=== PATIENT | male | born 1980 | race Caucasian/White ===

== ENCOUNTER 2019-01-19 16:49 | Emergency (ER) | payer OTHER ==
[~2019-01-19] VITALS: Ht 182.9 cm; Wt 100.0 kg
[2019-01-19 17:24] VITALS: BP 136/75
--- NOTE | 2019-01-19 18:29 | NUR ---
PT. HAS ELOPED. DR. CERVANTES WAS NOTIFIED.
[2019-01-20] MEDS ORDERED: ERYT1OIN6 EACHEYE (02:49)
== END 2019-01-19 18:34 | disposition left against medical advice (07) ==
LOC: ER 16:50
DX: H53.8 Other visual disturbances (principal); R51 Headache; Z53.21 Procedure and treatment not carried out due to patient leaving prior to being seen by health care provider

== ENCOUNTER 2019-01-20 01:34 | Emergency (ER) | payer OTHER ==
[~2019-01-20] VITALS: Ht 182.9 cm; Wt 96.3 kg
[2019-01-20 01:55] VITALS: BP 122/84
[2019-01-20] MEDS ORDERED: ibuprofen tablet 400 MG TABLET PO ONE (02:10)
[2019-01-20] MEDS ORDERED: proparacaine 0.5% ophthalmic drops 15ml EACHEYE ONE (02:10)
[2019-01-20] MEDS ORDERED: acetaminophen 325mg tablet PO ONE (02:10)
[2019-01-20] MEDS ORDERED: erythromycin ophthalmic ointment 1gm tube EACHEYE ONE (02:40)
[2019-01-20] MEDS ORDERED: ERYT1OIN6 EACHEYE (02:49)
== END 2019-01-20 03:03 | disposition home or self-care (01) ==
LOC: ER 01:35
DX: H57.13 Ocular pain, bilateral (principal); Z79.2 Long term (current) use of antibiotics
CPT/HCPCS: 99284